=== PATIENT | female | born 1980 | race Caucasian/White ===

== ENCOUNTER 2019-04-05 19:46 | Emergency (ER) | payer OTHER, BC ==
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
[2019-04-05] MEDS ORDERED: ACETAMINOPHEN 325 MG TABLET (FP) PO ONE (20:08)
[2019-04-05] MEDS ORDERED: ACETAMINOPHEN 325 MG TABLET (FP) ONE (20:14)
[2019-04-05 20:24] VITALS: BMI 30.9
[2019-04-05 20:56] LABS: BASO % 0.6 % (0-2.0); EOS % 2.5 % (0-4.5); HEMATOCRIT 41.9 % (32.4-45.2); HEMOGLOBIN 13.9 GM/dL (10.7-15.3); LYMPH % 22.1 % (8-40); MCH 28.7 pg (25.7-33.7); MCHC 33.3 g/dl (32.0-36.0); MEAN CELL VOLUME 86.3 fl (80-96); MONO % 8.3 % (3.8-10.2); NEUT % 66.5 % (42.8-82.8); PLATELET COUNT 508 K/MM3 (134-434); RBC 4.86 M/mm3 (3.60-5.2); RDW 14.2 % (11.6-15.6); WHITE BLOOD COUNT 11.6 K/mm3 (4.0-10.0)
[2019-04-05 21:06] LABS: INR 1.03 (0.83-1.09); PROTHROMBIN TIME (PATIENT) 12.2 SEC (9.7-13.0)
[2019-04-05 21:25] LABS: BILIRUBIN,TOTAL 0.4 mg/dL (0.2-1); BLOOD UREA NITROGEN 15.4 mg/dL (7-18); CALCIUM 9.2 mg/dL (8.5-10.1); CREATININE 0.7 mg/dL (0.55-1.3); POTASSIUM 4.5 mmol/L (3.5-5.1); TOT PROT 7.8 g/dl (6.4-8.2)
[2019-04-05 21:51] LABS: URINE APPEARANCE CLEAR; URINE BILIRUBIN NEGATIVE (NEGATIVE); URINE COLOR YELLOW; URINE GLUCOSE (UA) NEGATIVE (NEGATIVE); URINE KETONE 1+ (NEGATIVE); URINE LEUK ESTERASE NEGATIVE (NEGATIVE); URINE NITRITE NEGATIVE (NEGATIVE); URINE PROTEIN NEGATIVE (NEGATIVE); URINE UROBILINOGEN 0.2 mg/dL (0.2-1.0)
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
[2019-04-05] MEDS ORDERED: KETOROLAC TROMETHAMINE 30 MG/1 ML VIAL IVPUSH ONE (23:21)
[2019-04-05] MEDS ORDERED: IBUPROFEN 600 MG TABLET (FP) PO ONE ×2 (23:26→23:32)
[2019-04-05 23:51] VITALS: BP 121/80; PULSE 89; TEMP 97.6
--- NOTE | 2019-04-06 14:23 | EKG ---
Test Reason : Blood Pressure : / mmHG Vent. Rate : 083 BPM Atrial Rate : 083 BPM P-R Int : 144 ms QRS Dur : 080 ms QT Int : 380 ms P-R-T Axes : 052 029 026 degrees QTc Int : 446 ms NORMAL SINUS RHYTHM NORMAL ECG WHEN COMPARED WITH ECG OF 03-FEB-2014 13:47, NO SIGNIFICANT CHANGE WAS FOUND Confirmed by DARIA GIBSON MD ([id number]) on 04/06/2019 2:23:24 PM Referred By: Confirmed By:DARIA GIBSON MD
== END 2019-04-05 23:52 | disposition home or self-care (01) ==
LOC: JER 19:46
DX: R07.89 Other chest pain (principal); M54.9 Dorsalgia, unspecified; V43.52XA Car driver injured in collision with other type car in traffic accident, initial encounter; Y93.89 Activity, other specified; Y92.488 Other paved roadways as the place of occurrence of the external cause
CPT/HCPCS: 36415; 71275-TC; 73562-TC-RT-FY; 74174-TC; 80053; 81003; 84484; 84703; 85025; 85610; 85730; 93005; 93010; 99285-25

== ENCOUNTER 2020-08-26 22:56 | Emergency (ER) | payer BC ==
[2020-08-26 23:26] VITALS: BMI 37.8
[2020-08-27 03:02] LABS: BASO % 0.9 % (0-2.0); HEMATOCRIT 38.4 % (32.4-45.2); HEMOGLOBIN 12.8 GM/dL (10.7-15.3); LYMPH % 23.9 % (8-40); MCH 28.3 pg (25.7-33.7); MCHC 33.5 g/dl (32.0-36.0); MEAN CELL VOLUME 84.6 fl (80-96); MEAN PLT VOLUME 7.8 fl (7.5-11.1); MONO % 6.1 % (3.8-10.2); NEUT % 67.1 % (42.8-82.8); PLATELET COUNT 454 K/MM3 (134-434); RBC 4.53 M/mm3 (3.60-5.2); RDW 13.4 % (11.6-15.6); WHITE BLOOD COUNT 13.5 K/mm3 (4.0-10.0)
[2020-08-27 03:15] LABS: CHLORIDE 109 mmol/L (98-107); SODIUM 140 mmol/L (136-145)
[2020-08-27 03:17] LABS: ALBUMIN 3.6 g/dl (3.4-5.0); ANION GAP 11 MMOL/L (8-16); BLOOD UREA NITROGEN 13.9 mg/dL (7-18); CALCIUM 9.2 mg/dL (8.5-10.1); CO2 20 mmol/L (21-32)
[2020-08-27 03:18] LABS: GLUCOSE,RANDOM 111 mg/dL (74-106)
[2020-08-27 03:20] LABS: SGPT/ALT 26 U/L (13-61)
[2020-08-27 03:21] LABS: CREATININE 0.8 mg/dL (0.55-1.3); SGOT/AST 16 U/L (15-37)
[2020-08-27 03:22] LABS: BILIRUBIN,TOTAL 0.3 mg/dL (0.2-1); TOT PROT 7.3 g/dl (6.4-8.2)
[2020-08-27 03:23] LABS: ALK PHOS 172 U/L (45-117)
[2020-08-27 05:22] VITALS: BP 110/72; PULSE 80; TEMP 98.6
== END 2020-08-27 05:21 | disposition home or self-care (01) ==
LOC: JER 22:56
DX: R06.02 Shortness of breath (principal)
CPT/HCPCS: 36415; 71046-TC-FY; 71275-TC; 80053; 82550; 84484; 85025; 85379; 93005; 93010; 99285-25

== ENCOUNTER 2020-09-02 08:49 | Inpatient (IN) | payer BC ==
[2020-08-27 15:50] VITALS: BMI 37.8
[2020-09-02] MEDS ORDERED: MIDAZOLAM HCL 2 MG/2 ML SINGLE DOSE VIAL ONE ×2 (09:13→11:06)
[2020-09-02] MEDS ORDERED: BUPIVACAINE LIPOSOME/PF (EXPAREL) 266 MG/20 ML VIAL ONE (09:14)
[2020-09-02] MEDS ORDERED: ROPIVACAINE HCL 0.5% 30ML VIAL ONE (09:14)
[2020-09-02] MEDS ORDERED: BUPIVACAINE HCL/PF 0.5% (5 MG/ML) 30 ML VIAL IJ ONE (09:37)
[2020-09-02] MEDS ORDERED: BUPIVACAINE HCL/PF 0.25% (2.5MG/ML) 10 ML VIAL ONE (09:43)
[2020-09-02] MEDS ORDERED: fentaNYL CITRATE 250 MCG/5 ML VIAL ONE (10:19)
[2020-09-02] MEDS ORDERED: PROPOFOL 20 ML ONE (10:19)
[2020-09-02] MEDS ORDERED: ROCURONIUM BROMIDE 50 MG/5 ML SYRINGE ONE (10:20)
[2020-09-02] MEDS ORDERED: LIDOCAINE HCL/PF 2% SDV 5ML VIAL ONE (10:20)
[2020-09-02] MEDS ORDERED: LIDOCAINE HCL 2% JELLY (5 ML/TUBE) ONE (10:20)
[2020-09-02] MEDS ORDERED: GLYCOPYRROLATE 0.2 MG/1 ML VIAL ONE (11:10)
[2020-09-02] MEDS ORDERED: ONDANSETRON 4 MG/2 ML VIAL ONE (11:11)
[2020-09-02] MEDS ORDERED: DEXAMETHASONE SOD PHOSPHATE 4 MG/1 ML VIAL ONE (11:11)
[2020-09-02] MEDS ORDERED: ceFAZolin SODIUM 1 GM VIAL ONE (11:11)
[2020-09-02] MEDS ORDERED: NEOSTIGMINE METHYLSULFATE 0.5 MG/1 ML - 10 ML MDV ONE (11:11)
[2020-09-02] MEDS ORDERED: KETOROLAC TROMETHAMINE 30 MG/1 ML VIAL ONE (11:11)
[2020-09-02] MEDS ORDERED: BUPIVACAINE HCL/PF 0.25% (2.5MG/ML) 10 ML VIAL IJ ONE (11:34)
[2020-09-02] MEDS ORDERED: HYDROmorphone HCL 0.5 MG/0.5 ML SYRINGE IVPB PRN (11:52)
[2020-09-02] MEDS: ONDANSETRON 4 MG/2 ML VIAL IVPUSH PRN (11:58)
[2020-09-02] MEDS ORDERED: FAMOTIDINE 20 MG/50 ML IVPB 20 MG/50 ML MG IVPB ONE (12:01)
[2020-09-02] MEDS: METOCLOPRAMIDE HCL INJECTION 10 MG/2 ML VIAL IVPUSH SCH ×4 (12:05→23:45)
[2020-09-02] MEDS ORDERED: ONDANSETRON 4 MG/2 ML VIAL IVPUSH PRN (12:14)
[2020-09-02] MEDS ORDERED: PROMETHAZINE HCL 25 MG/1 ML VIAL IVPUSH PRN (12:14)
[2020-09-02] MEDS ORDERED: ACETAMINOPHEN INJECTION 100 ML IVPB ONE (12:36)
[2020-09-02] MEDS: ACETAMINOPHEN 1000 MG/100 ML VIAL (NON FORMULARY) IVPB SCH ×3 (12:40→23:45)
[2020-09-02 12:58] LABS: HEMOGLOBIN 13.7 GM/dl (10.7-15.3); MCH 28.4 pg (25.7-33.7); MCHC 32.5 g/dl (32.0-36.0); MEAN CELL VOLUME 87.4 fl (80-96); MEAN PLT VOLUME 8.5 fl (7.5-11.1); PLATELET COUNT 512 K/MM3 (134-434); RDW 12.8 % (11.6-15.6); WHITE BLOOD COUNT 14.2 K/mm3 (4.0-10.8)
[2020-09-02 13:04] LABS: ALBUMIN 3.8 g/dl (3.4-5.0); BILIRUBIN,TOTAL 0.4 mg/dl (0.2-1); CALCIUM 8.7 mg/dl (8.5-10); CREATININE 0.7 mg/dl (0.55-1.3); POTASSIUM 3.9 mmol/L (3.5-5.1); TOT PROT 7.2 g/dl (6.4-8.2)
[2020-09-02] MEDS ORDERED: ALPRAZolam 0.25 MG TABLET PO PRN (13:05)
[2020-09-02] MEDS: SODIUM CHLORIDE 1,000 ML IV SCH (14:00)
[2020-09-02] MEDS: HYDROmorphone HCL/PF 1 MG/ML VIAL IVPB PRN ×2 (16:00→20:06)
[2020-09-02] MEDS: FAMOTIDINE 20 MG/50 ML IVPB 20 MG/50 ML MG IVPB SCH (21:58)
[2020-09-02 22:00] LABS: HEMATOCRIT 40.2 % (32.4-45.2); HEMOGLOBIN 13.6 GM/dl (10.7-15.3); MCHC 33.9 g/dl (32.0-36.0); MEAN CELL VOLUME 85.4 fl (80-96); MEAN PLT VOLUME 8.1 fl (7.5-11.1); PLATELET COUNT 501 K/MM3 (134-434); RBC 4.71 M/mm3 (3.60-5.2); RDW 12.7 % (11.6-15.6); WHITE BLOOD COUNT 19.6 K/mm3 (4.0-10.8)
[2020-09-03] MEDS: ACETAMINOPHEN 1000 MG/100 ML VIAL (NON FORMULARY) IVPB SCH ×2 (05:21→12:14)
[2020-09-03] MEDS: METOCLOPRAMIDE HCL INJECTION 10 MG/2 ML VIAL IVPUSH SCH ×2 (06:05→12:13)
[2020-09-03] MEDS ORDERED: oxyCODONE HCL 5 MG TABLET PO PRN (08:52)
[2020-09-03] MEDS ORDERED: ACETAMINOPHEN 325 MG TABLET (FP) PO PRN (08:52)
[2020-09-03] MEDS ORDERED: SODIUM CHLORIDE 1,000 ML IV SCH (09:00)
[2020-09-03 09:06] LABS: ALBUMIN 3.5 g/dl (3.4-5.0); BILIRUBIN,TOTAL 0.6 mg/dl (0.2-1); CALCIUM 8.5 mg/dl (8.5-10); CREATININE 0.6 mg/dl (0.55-1.3); POTASSIUM 3.9 mmol/L (3.5-5.1); TOT PROT 6.5 g/dl (6.4-8.2)
[2020-09-03 09:07] LABS: HEMATOCRIT 35.9 % (32.4-45.2); MCHC 33.4 g/dl (32.0-36.0); MEAN PLT VOLUME 8.5 fl (7.5-11.1); PLATELET COUNT 461 K/MM3 (134-434); RBC 4.27 M/mm3 (3.60-5.2); RDW 13.4 % (11.6-15.6); WHITE BLOOD COUNT 17.1 K/mm3 (4.0-10.0)
[2020-09-03] MEDS: ONDANSETRON 4 MG/2 ML VIAL IVPUSH PRN ×2 (10:00→13:00)
[2020-09-03] MEDS: HYDROmorphone HCL/PF 1 MG/ML VIAL IVPB PRN (10:00)
[2020-09-03] MEDS: FAMOTIDINE 20 MG/50 ML IVPB 20 MG/50 ML MG IVPB SCH (10:00)
[2020-09-03] MEDS: SODIUM CHLORIDE 1,000 ML IV SCH (12:13)
[2020-09-03 14:20] VITALS: BP 123/68; PULSE 74; TEMP 98.4
== END 2020-09-03 15:18 | disposition home or self-care (01) | DRG 621 ==
LOC: FM/S 08:49
PROVIDERS: ADMIT Surgery; ATTEND Surgery
PROC: 0DJ04ZZ Inspection of Upper Intestinal Tract, Percutaneous Endoscopic Approach (ICD-10-PCS; 2020-09-02)
PROC: 0DB64Z3 Excision of Stomach, Percutaneous Endoscopic Approach, Vertical (ICD-10-PCS; principal; 2020-09-02 10:46)
PROC: 0FB24ZX Excision of Left Lobe Liver, Percutaneous Endoscopic Approach, Diagnostic (ICD-10-PCS; 2020-09-02 10:46)
DX: E66.01 Morbid (severe) obesity due to excess calories (principal); Z68.37 Body mass index [BMI] 37.0-37.9, adult; R16.0 Hepatomegaly, not elsewhere classified
CPT/HCPCS: 36415; 74240-TC-FY; 80053; 84703; 85027; 86850; 86900; 86901; 88305-TC; 94760; J0131

== ENCOUNTER 2022-01-21 14:38 | Emergency (ER) | payer BC ==
[2022-01-21 14:58] VITALS: BP 119/82; PULSE 74; TEMP 98.2; BMI 23.8
[2022-01-21] MEDS ORDERED: SODIUM CHLORIDE 1,000 ML IV STA (15:45)
[2022-01-21] MEDS ORDERED: ONDANSETRON 4 MG/2 ML VIAL IVPUSH ONE (15:46)
[2022-01-21] MEDS ORDERED: ONDANSETRON 4 MG/2 ML VIAL ONE (15:57)
[2022-01-21] MEDS ORDERED: FAMOTIDINE 20 MG/50 ML IVPB 20 MG/50 ML MG IVPB ONE ×2 (16:14→16:23)
[2022-01-21] MEDS ORDERED: IBUPROFEN 400 MG TABLET (FP) PO ONE (16:31)
[2022-01-21 16:51] LABS: BASO % 0.8 % (0-2.0); EOS % 1.9 % (0-4.5); HEMATOCRIT 43.1 % (32.4-45.2); HEMOGLOBIN 14.4 GM/dL (10.7-15.3); LYMPH % 34.3 % (8-40); MCH 29.2 pg (25.7-33.7); MCHC 33.5 g/dl (32.0-36.0); MEAN CELL VOLUME 87.3 fl (80-96); MEAN PLT VOLUME 7.7 fl (7.5-11.1); MONO % 6.4 % (3.8-10.2); NEUT % 56.6 % (42.8-82.8); PLATELET COUNT 463 10^3/uL (134-434); RBC 4.94 M/mm3 (3.60-5.2); RDW 13.8 % (11.6-15.6)
[2022-01-21 16:54] LABS: EPI CELLS 8 /uL (0-25.1); HCG,QUALITATIVE URINE Negative; HYALINE CASTS 0 /uL (0-3.1); URINE APPEARANCE CLEAR; URINE BACTERIA 184 /uL (0-1359); URINE BILIRUBIN NEGATIVE (NEGATIVE); URINE COLOR YELLOW; URINE GLUCOSE (UA) NEGATIVE (NEGATIVE); URINE KETONE TRACE (NEGATIVE); URINE LEUK ESTERASE TRACE (NEGATIVE); URINE NITRITE NEGATIVE (NEGATIVE); URINE PROTEIN NEGATIVE (NEGATIVE); URINE RBC 11 /uL (0-23.9); URINE UROBILINOGEN 0.2 mg/dL (0.2-1.0); URINE WBC 10 /uL (0-25.8)
[2022-01-21 17:11] LABS: CALCIUM 9.3 mg/dL (8.5-10.1)
[2022-01-21 17:12] LABS: ALBUMIN 4.1 g/dl (3.4-5.0); BLOOD UREA NITROGEN 11.3 mg/dL (7-18)
[2022-01-21 17:15] LABS: CREATININE 0.7 mg/dL (0.55-1.3)
[2022-01-21 17:16] LABS: BILIRUBIN,TOTAL 0.8 mg/dL (0.2-1)
== END 2022-01-21 19:05 | disposition home or self-care (01) ==
LOC: JER 14:38
PROC: 3E033NZ Introduction of Analgesics, Hypnotics, Sedatives into Peripheral Vein, Percutaneous Approach (ICD-10-PCS; principal; 2022-01-21)
PROC: 3E033GC Introduction of Other Therapeutic Substance into Peripheral Vein, Percutaneous Approach (ICD-10-PCS; 2022-01-21)
PROC: 3E0337Z Introduction of Electrolytic and Water Balance Substance into Peripheral Vein, Percutaneous Approach (ICD-10-PCS; 2022-01-21)
DX: R11.0 Nausea (principal)
CPT/HCPCS: 36415; 76705-TC; 80053; 81003; 83690; 84132; 84478; 84703; 85025; 87077; 87086; 99285-25

== ENCOUNTER → 2022-04-30 | Day surgery (SDC) | payer BC ==
[2022-04-29 15:50] VITALS: BMI 23.8
[~2022-04-30] MED LIST: BACITRACIN/POLYMYXIN OPH OINT 3.5 GM TUBE ONE; BETAXOLOL HCL 0.25% OPHTHALMIC 10 ML DROPSBTL ONE; EPI-SHUGARCAINE (EPINEPHRINE 0.025% & LIDOCAINE-PF 0.75%) 4ML ONE; NEO/POLYMYX B SULF/DEXAMETH OPHTHALMIC 5ML BOTTLE ONE; POVIDONE-IODINE 5% OPHTHALMIC PREP 30 ML SOLUTION ONE; TETRACAINE 0.5% OPHTH SOLN 2 ML BOTTLE ONE
== END | disposition home or self-care (01) ==
LOC: JASU-ENDO 04:39
PROVIDERS: ATTEND Internal Medicine Gastroenterology
DX: Z53.8 Procedure and treatment not carried out for other reasons (principal)

== ENCOUNTER 2023-06-13 12:03 | Emergency (ER) | payer BC ==
[2023-06-13 12:15] VITALS: BP 106/76; PULSE 88; RESP 18; TEMP 97.6; BMI 27.4
[2023-06-13] MEDS ORDERED: ACETAMINOPHEN 1000 MG/100 ML BAG IVPB ONE (13:13)
[2023-06-13] MEDS ORDERED: ACETAMINOPHEN INJECTION 100 ML IVPB ONE (14:02)
[2023-06-13 14:38] LABS: BASO % 1.5 % (0-2.0); EOS % 1.9 % (0-4.5); HEMATOCRIT 41.7 % (32.4-45.2); HEMOGLOBIN 13.2 GM/dL (10.7-15.3); LYMPH % 21.9 % (8-40); MCH 25.2 pg (25.7-33.7); MCHC 31.6 g/dl (32.0-36.0); MEAN CELL VOLUME 79.7 fl (80-96); MONO % 8.7 % (3.8-10.2); PLATELET COUNT 668 10^3/uL (134-434); RBC 5.24 M/mm3 (3.60-5.2); RDW 13.9 % (11.6-15.6); WHITE BLOOD COUNT 11.8 K/mm3 (4.0-10.0)
[2023-06-13 14:54] LABS: POTASSIUM 4.3 mmol/L (3.5-5.1)
[2023-06-13 14:55] LABS: CALCIUM 9.4 mg/dL (8.5-10.1)
[2023-06-13 14:56] LABS: ALBUMIN 3.7 g/dl (3.4-5.0); BLOOD UREA NITROGEN 12.9 mg/dL (7-18)
[2023-06-13 14:59] LABS: CREATININE 0.6 mg/dL (0.55-1.3)
[2023-06-13 15:01] LABS: BILIRUBIN,TOTAL 0.4 mg/dL (0.2-1); TOT PROT 8.2 g/dl (6.4-8.2)
[2023-06-13] MEDS ORDERED: CLINDAMYCIN HCL 150 MG CAPSULE (FP) PO ONE (15:10)
[2023-06-13 15:13] LABS: ERYTHROCYTE SEDIMENTATION RATE 39 mm/hr (0-20)
[2023-06-13] MEDS ORDERED: oxyCODONE HCL 5 MG TABLET PO ONE (15:15)
[2023-06-13] MEDS ORDERED: KETOROLAC TROMETHAMINE 15 MG/ML VIAL IVPUSH ONE (15:17)
[2023-06-13] MEDS ORDERED: KETOROLAC TROMETHAMINE 15 MG/ML VIAL ONE (15:26)
[2023-06-13] MEDS ORDERED: CLINDAMYCIN HCL 150 MG CAPSULE (FP) ONE (15:26)
== END 2023-06-13 17:18 | disposition home or self-care (01) ==
LOC: JER 12:03
PROC: 3E033NZ Introduction of Analgesics, Hypnotics, Sedatives into Peripheral Vein, Percutaneous Approach (ICD-10-PCS; principal; 2023-06-13)
PROC: 3E0333Z Introduction of Anti-inflammatory into Peripheral Vein, Percutaneous Approach (ICD-10-PCS; 2023-06-13)
DX: M25.551 Pain in right hip (principal); R50.9 Fever, unspecified; L02.31 Cutaneous abscess of buttock
CPT/HCPCS: 36415; 80053; 85025; 85651; 86140; 99284-25

== ENCOUNTER 2023-06-20 12:00 | Inpatient (IN) | payer BC ==
[2023-06-20 12:24] VITALS: BMI 26.6
[2023-06-20] MEDS ORDERED: ACETAMINOPHEN 1000 MG/100 ML BAG IVPB ONE (14:44)
[2023-06-20] MEDS ORDERED: CLINDAMYCIN IVPB 300 MG in DEXTROSE 5%-WATER - 48 ML IVPB ONE (14:46)
[2023-06-20] MEDS ORDERED: AMPICILLIN NA/SULBACTAM NA 3 GM in SODIUM CHLORIDE 100 ML IVPB ONE (14:46)
[2023-06-20] MEDS ORDERED: ACETAMINOPHEN INJECTION 100 ML IVPB ONE (15:00)
[2023-06-20] MEDS ORDERED: AMPICILLIN NA/SULBACTAM NA 3 GM VIAL ONE (15:00)
[2023-06-20 16:35] LABS: BASO % 0.6 % (0-2.0); CHLORIDE 107 mmol/L (98-107); EOS % 2.4 % (0-4.5); HEMATOCRIT 39.1 % (32.4-45.2); HEMOGLOBIN 12.9 GM/dL (10.7-15.3); INR 1.17 (0.83-1.09); LYMPH % 22.8 % (8-40); MCHC 33.1 g/dl (32.0-36.0); MEAN CELL VOLUME 78.6 fl (80-96); MEAN PLT VOLUME 7.4 fl (7.5-11.1); MONO % 7.2 % (3.8-10.2); PLATELET COUNT 651 10^3/uL (134-434); PROTHROMBIN TIME (PATIENT) 13.5 SEC (9.7-13.0); RBC 4.98 M/mm3 (3.60-5.2); RDW 14.4 % (11.6-15.6); SODIUM 137 mmol/L (136-145); WHITE BLOOD COUNT 11.7 K/mm3 (4.0-10.0)
[2023-06-20 16:37] LABS: BLOOD UREA NITROGEN 10.3 mg/dL (7-18); CALCIUM 8.7 mg/dL (8.5-10.1); CO2 22 mmol/L (21-32)
[2023-06-20 16:38] LABS: ALBUMIN 3.4 g/dl (3.4-5.0); GLUCOSE,RANDOM 87 mg/dL (74-106)
[2023-06-20 16:41] LABS: CREATININE 0.7 mg/dL (0.55-1.3); SGOT/AST 76 U/L (15-37); SGPT/ALT 51 U/L (13-61)
[2023-06-20 16:42] LABS: BILIRUBIN,TOTAL 0.6 mg/dL (0.2-1)
[2023-06-20 16:44] LABS: ALK PHOS 318 U/L (45-117); ANION GAP 8 mmol/L (4-13); POTASSIUM 6.3 mmol/L (3.5-5.1)
[2023-06-20 18:07] LABS: CALCIUM 8.5 mg/dL (8.5-10.1)
[2023-06-20 18:08] LABS: BLOOD UREA NITROGEN 9.8 mg/dL (7-18)
[2023-06-20 18:11] LABS: CREATININE 0.6 mg/dL (0.55-1.3)
[2023-06-20] MEDS ORDERED: ACETAMINOPHEN 1000 MG/100 ML BAG IVPB PRN (23:00)
[2023-06-21] MEDS ORDERED: AMPICILLIN NA/SULBACTAM NA 3 GM in SODIUM CHLORIDE 100 ML IVPB SCH (09:00)
[2023-06-21 09:30] LABS: BASO % 0.5 % (0-2.0); EOS % 2.6 % (0-4.5); HEMATOCRIT 37.7 % (32.4-45.2); HEMOGLOBIN 12.4 GM/dL (10.7-15.3); LYMPH % 16.3 % (8-40); MCH 25.9 pg (25.7-33.7); MCHC 32.9 g/dl (32.0-36.0); MEAN CELL VOLUME 78.7 fl (80-96); MEAN PLT VOLUME 7.6 fl (7.5-11.1); MONO % 7.3 % (3.8-10.2); NEUT % 73.3 % (42.8-82.8); PLATELET COUNT 592 10^3/uL (134-434); RBC 4.79 M/mm3 (3.60-5.2); RDW 14.1 % (11.6-15.6); WHITE BLOOD COUNT 9.6 K/mm3 (4.0-10.0)
[2023-06-21 09:38] LABS: PH,URINE 5.5 (5.0-8.0); URINE APPEARANCE CLEAR; URINE BILIRUBIN NEGATIVE (NEGATIVE); URINE COLOR YELLOW; URINE GLUCOSE (UA) NEGATIVE (NEGATIVE); URINE KETONE NEGATIVE (NEGATIVE); URINE LEUK ESTERASE NEGATIVE (NEGATIVE); URINE NITRITE NEGATIVE (NEGATIVE); URINE PROTEIN NEGATIVE (NEGATIVE); URINE UROBILINOGEN 0.2 mg/dL (0.2-1.0)
[2023-06-21] MEDS ORDERED: PROPOFOL 20 ML ONE (09:40)
[2023-06-21] MEDS ORDERED: PROPOFOL 40 ML ONE (09:40)
[2023-06-21] MEDS ORDERED: MIDAZOLAM HCL 2 MG/2 ML SINGLE DOSE VIAL ONE (09:41)
[2023-06-21] MEDS ORDERED: LIDOCAINE HCL/PF 2% SDV 5ML VIAL ONE (09:41)
[2023-06-21] MEDS ORDERED: FENTANYL CITRATE/PF 50 MCG/ML VIAL ONE ×3 (09:42→10:53)
[2023-06-21 09:44] LABS: POTASSIUM 4.2 mmol/L (3.5-5.1)
[2023-06-21 09:47] LABS: CALCIUM 8.6 mg/dL (8.5-10.1)
[2023-06-21 09:48] LABS: ALBUMIN 3.1 g/dl (3.4-5.0); BLOOD UREA NITROGEN 9.2 mg/dL (7-18)
[2023-06-21 09:52] LABS: BILIRUBIN,TOTAL 0.5 mg/dL (0.2-1); CREATININE 0.5 mg/dL (0.55-1.3); TOT PROT 7.2 g/dl (6.4-8.2)
[2023-06-21] MEDS ORDERED: KETAMINE HCL 200 MG/20 ML VIAL ONE (09:59)
[2023-06-21] MEDS ORDERED: BUPIVACAINE HCL/PF 0.5% (5MG/ML) 10 ML VIAL IJ ONE ×2 (10:08)
[2023-06-21] MEDS ORDERED: LIDOCAINE HCL 1%, 10 MG/ML (20ML VIAL) PNB ONE ×3 (10:09)
[2023-06-21] MEDS ORDERED: ONDANSETRON 4 MG/2 ML VIAL IVPUSH PRN ×2 (10:37→11:06)
[2023-06-21] MEDS ORDERED: ACETAMINOPHEN 1000 MG/100 ML BAG IVPB ONE ×2 (10:39→10:43)
[2023-06-21] MEDS ORDERED: ACETAMINOPHEN INJECTION 100 ML IVPB ONE (10:40)
[2023-06-21] MEDS ORDERED: LACTATED RINGERS SOLUTION 1,000 ML IV SCH (10:45)
[2023-06-21] MEDS: LACTATED RINGERS SOLUTION 1,000 ML IV SCH (11:10)
[2023-06-21] MEDS: ACETAMINOPHEN 500 MG TABLET (FP) PO PRN (17:34)
[2023-06-21] MEDS: DAPTOMYCIN 420 MG in SODIUM CHLORIDE 50 ML IVPB SCH (17:35)
[2023-06-21] MEDS: PIPERACILLIN/TAZOB 3.375 GM 3.375 GM in DEXTROSE 5%-WATER - 50 ML IVPB SCH (19:02)
[2023-06-22] MEDS: ACETAMINOPHEN 500 MG TABLET (FP) PO PRN ×3 (00:01→22:08)
[2023-06-22] MEDS: PIPERACILLIN/TAZOB 3.375 GM 3.375 GM in DEXTROSE 5%-WATER - 50 ML IVPB SCH ×3 (01:52→17:30)
[2023-06-22] MEDS: DAPTOMYCIN 420 MG in SODIUM CHLORIDE 50 ML IVPB SCH (10:28)
[2023-06-22] MEDS: LACTATED RINGERS SOLUTION 1,000 ML IV SCH (12:00)
[2023-06-22] MEDS ORDERED: HYDROmorphone HCl 2 MG/ML VIAL IVPUSH ONE (14:01)
[2023-06-22] MEDS ORDERED: diphenhydrAMINE HCL 25 MG CAPSULE (FP) PO ONE (14:51)
[2023-06-22] MEDS ORDERED: oxyCODONE HCL 5 MG TABLET PO PRN (16:56)
[2023-06-22] MEDS ORDERED: ONDANSETRON *ODT* 4 MG TABLET SL PRN (16:56)
[2023-06-22] MEDS ORDERED: ONDANSETRON 4 MG/2 ML VIAL IVPUSH ONE (17:15)
[2023-06-23] MEDS: LACTATED RINGERS SOLUTION 1,000 ML IV SCH ×2 (01:43→12:32)
[2023-06-23] MEDS: PIPERACILLIN/TAZOB 3.375 GM 3.375 GM in DEXTROSE 5%-WATER - 50 ML IVPB SCH ×2 (01:43→12:08)
[2023-06-23 09:26] LABS: HEMOGLOBIN 11.9 GM/dL (10.7-15.3); MCH 26.3 pg (25.7-33.7); MCHC 33.8 g/dl (32.0-36.0); MEAN CELL VOLUME 77.8 fl (80-96); MEAN PLT VOLUME 7.2 fl (7.5-11.1); PLATELET COUNT 627 10^3/uL (134-434); RDW 14.2 % (11.6-15.6); WHITE BLOOD COUNT 8.2 K/mm3 (4.0-10.0)
[2023-06-23 09:50] LABS: CALCIUM 8.7 mg/dL (8.5-10.1)
[2023-06-23 09:51] LABS: BLOOD UREA NITROGEN 7.3 mg/dL (7-18)
[2023-06-23 09:54] LABS: CREATININE 0.6 mg/dL (0.55-1.3)
[2023-06-23] MEDS ORDERED: ONDANSETRON 4 MG/2 ML VIAL IVPUSH PRN (10:40)
[2023-06-23] MEDS ORDERED: ONDANSETRON *ODT* 4 MG TABLET SL PRN (10:40)
[2023-06-23] MEDS ORDERED: KETOROLAC TROMETHAMINE 30 MG/1 ML VIAL IVPUSH PRN (10:41)
[2023-06-23] MEDS: DAPTOMYCIN 420 MG in SODIUM CHLORIDE 50 ML IVPB SCH (12:08)
[2023-06-23] MEDS: ACETAMINOPHEN 500 MG TABLET (FP) PO PRN (13:52)
[2023-06-23] MEDS ORDERED: diphenhydrAMINE HCL 25 MG CAPSULE (FP) PO PRN ×2 (20:27→22:00)
[2023-06-24] MEDS: ACETAMINOPHEN 500 MG TABLET (FP) PO PRN (13:21)
[2023-06-24 15:23] VITALS: BP 101/64; PULSE 98; RESP 17; TEMP 97.7
== END 2023-06-24 15:37 | disposition home or self-care (01) | DRG 571 ==
LOC: JER 12:00 → JERBED 16:57 → J5S 19:20
PROVIDERS: ADMIT Internal Medicine; ATTEND Internal Medicine
PROC: 0Y900ZX Drainage of Right Buttock, Open Approach, Diagnostic (ICD-10-PCS; 2023-06-21)
PROC: 0JB70ZZ Excision of Back Subcutaneous Tissue and Fascia, Open Approach (ICD-10-PCS; principal; 2023-06-21 11:00)
DX: L02.31 Cutaneous abscess of buttock (principal); I96 Gangrene, not elsewhere classified; K21.9 Gastro-esophageal reflux disease without esophagitis; K76.0 Fatty (change of) liver, not elsewhere classified; Z98.84 Bariatric surgery status; Z88.1 Allergy status to other antibiotic agents; K59.00 Constipation, unspecified
CPT/HCPCS: 0241U-QW; 36415; 72192-TC; 80048; 80053; 81003; 82550; 83605; 85025; 85027; 85610; 85730; 86140; 87040; 87070; 87205; 88304-TC; 94760; 99285-25; J0878

== ENCOUNTER 2023-08-04 06:00 | Inpatient (IN) | payer BC ==
[2023-08-04] MEDS ORDERED: ACETAMINOPHEN 500 MG TABLET (FP) PO ONE (07:18)
[2023-08-04 07:29] LABS: INR 1.07 (0.83-1.09); PROTHROMBIN TIME (PATIENT) 12.4 SEC (9.7-13.0)
[2023-08-04 07:32] LABS: ACTIVATED PTT 30.2 SECONDS (25.2-36.5)
[2023-08-04 07:35] LABS: BASO % 0.6 % (0-2.0); EOS % 2.4 % (0-4.5); HEMATOCRIT 37.4 % (32.4-45.2); HEMOGLOBIN 12.5 GM/dL (10.7-15.3); LYMPH % 26.2 % (8-40); MCH 26.7 pg (25.7-33.7); MCHC 33.3 g/dl (32.0-36.0); MEAN CELL VOLUME 80.2 fl (80-96); MEAN PLT VOLUME 7.7 fl (7.5-11.1); MONO % 7.4 % (3.8-10.2); NEUT % 63.4 % (42.8-82.8); PLATELET COUNT 430 10^3/uL (134-434); RBC 4.66 M/mm3 (3.60-5.2); RDW 16.3 % (11.6-15.6); WHITE BLOOD COUNT 8.2 K/mm3 (4.0-10.0)
[2023-08-04 07:44] LABS: POTASSIUM 4.8 mmol/L (3.5-5.1)
[2023-08-04 07:47] LABS: ALBUMIN 3.4 g/dl (3.4-5.0); BLOOD UREA NITROGEN 11.9 mg/dL (7-18); MAGNESIUM 2.4 mg/dL (1.8-2.4)
[2023-08-04] MEDS ORDERED: LACTATED RINGERS SOLUTION 1000 ML INFUS.BAG IV ONE (07:47)
[2023-08-04] MEDS ORDERED: ACETAMINOPHEN 325 MG TABLET (FP) ONE (07:49)
[2023-08-04 07:50] LABS: CREATININE 0.6 mg/dL (0.55-1.3)
[2023-08-04] MEDS ORDERED: ACETAMINOPHEN INJECTION 100 ML IVPB ONE (07:50)
[2023-08-04 07:51] LABS: TOT PROT 7.4 g/dl (6.4-8.2)
[2023-08-04] MEDS ORDERED: ACETAMINOPHEN 1000 MG/100 ML BAG IVPB ONE (07:51)
[2023-08-04 07:52] LABS: BILIRUBIN,TOTAL 0.7 mg/dL (0.2-1)
[2023-08-04 11:08] VITALS: BMI 24.3
[2023-08-04] MEDS ORDERED: BUPIVACAINE HCL/PF 0.25% (2.5MG/ML) 10 ML VIAL ONE (11:31)
[2023-08-04] MEDS ORDERED: BUPIVACAINE HCL/PF 0.5% (5MG/ML) 10 ML VIAL ONE (11:31)
[2023-08-04] MEDS ORDERED: LIDOCAINE HCL 1%, 10 MG/ML (20ML VIAL) ONE (11:31)
[2023-08-04] MEDS ORDERED: MIDAZOLAM HCL 2 MG/2 ML SINGLE DOSE VIAL ONE (12:20)
[2023-08-04] MEDS ORDERED: DEXAMETHASONE SOD PHOSPHATE 4 MG/1 ML VIAL ONE ×2 (12:23→12:43)
[2023-08-04] MEDS ORDERED: ONDANSETRON 4 MG/2 ML VIAL ONE (12:23)
[2023-08-04] MEDS ORDERED: ceFAZolin SODIUM 1 GM VIAL ONE (12:41)
[2023-08-04] MEDS ORDERED: ceFAZolin SODIUM 1 GM VIAL IVPB ONE (12:41)
[2023-08-04] MEDS ORDERED: SUCCINYLCHOLINE CHLORIDE 200 MG/10 ML SYRINGE ONE (12:52)
[2023-08-04] MEDS ORDERED: PROPOFOL 20 ML ONE (12:52)
[2023-08-04] MEDS ORDERED: ONDANSETRON 4 MG/2 ML VIAL IVPUSH PRN ×2 (13:13→13:39)
[2023-08-04] MEDS ORDERED: LACTATED RINGERS SOLUTION 1,000 ML/1,000 ML INFUS.BAG IV SCH (13:45)
[2023-08-04] MEDS ORDERED: PHENYLEPHRINE HCL 10 MG/1 ML SINGLE DOSE VIAL ONE (15:54)
[2023-08-04] MEDS ORDERED: ACETAMINOPHEN 325 MG TABLET (FP) PO PRN (16:43)
[2023-08-04] MEDS ORDERED: traMADol HCL 50 MG TABLET PO PRN (16:44)
[2023-08-04] MEDS ORDERED: KETOROLAC TROMETHAMINE 30 MG/1 ML VIAL IVPUSH ONE (17:58)
[2023-08-04] MEDS: KETOROLAC TROMETHAMINE 15 MG/ML VIAL IVPUSH SCH (22:34)
[2023-08-05] MEDS: KETOROLAC TROMETHAMINE 15 MG/ML VIAL IVPUSH SCH ×4 (02:49→21:48)
[2023-08-05] MEDS: ACETAMINOPHEN 1000 MG/100 ML BAG IVPB SCH ×2 (09:49→18:05)
[2023-08-05] MEDS ORDERED: oxyCODONE HCL 5 MG TABLET PO PRN (10:17)
[2023-08-05] MEDS ORDERED: ONDANSETRON 4 MG/2 ML VIAL IVPUSH PRN (10:17)
[2023-08-05] MEDS ORDERED: diphenhydrAMINE HCL 25 MG CAPSULE (FP) PO PRN (10:18)
[2023-08-05] MEDS: POLYETHYLENE GLYCOL (HEALTHYLAX) 3350 17 GM PACKET PO SCH ×2 (10:48→21:48)
[2023-08-05] MEDS: DOCUSATE SODIUM 100 MG CAPSULE (FP) PO SCH ×2 (10:48→21:48)
[2023-08-05 19:09] VITALS: PULSE 74
[2023-08-06] MEDS: ACETAMINOPHEN 1000 MG/100 ML BAG IVPB SCH (02:06)
[2023-08-06] MEDS: KETOROLAC TROMETHAMINE 15 MG/ML VIAL IVPUSH SCH ×2 (02:57→10:22)
[2023-08-06] MEDS: POLYETHYLENE GLYCOL (HEALTHYLAX) 3350 17 GM PACKET PO SCH (10:18)
[2023-08-06] MEDS: DOCUSATE SODIUM 100 MG CAPSULE (FP) PO SCH (10:18)
[2023-08-06 14:27] VITALS: BP 98/60; RESP 18; TEMP 98.1
== END 2023-08-06 15:47 | disposition home or self-care (01) | DRG 603 ==
LOC: JER 06:00 → JERBED 07:30 → J5S 10:12
PROVIDERS: ADMIT Internal Medicine; ATTEND Internal Medicine
PROC: 0J990ZX Drainage of Buttock Subcutaneous Tissue and Fascia, Open Approach, Diagnostic (ICD-10-PCS; principal; 2023-08-04 12:00)
DX: L02.31 Cutaneous abscess of buttock (principal); F41.9 Anxiety disorder, unspecified
CPT/HCPCS: 0241U-QW; 36415; 80053; 83735; 84703; 85025; 85610; 85651; 85730; 86140; 86850; 86900; 86901; 87070; 87102; 87116; 87205; 87206; 87210; 93005; 93010; 94760; 99285-25